=== PATIENT | female | born 1950 | race Caucasian/White ===

== ENCOUNTER → 2024-07-26 | Outpatient (CLI) | payer MEDICARE ==
--- NOTE | 2024-07-26 14:08 | HMCIMG ---
Exam Type: CERV SPINE 4-5 VWS Clinical Information: CERVICALGIA Comparison: None FINDINGS: C1 through the top of T1 are seen on the lateral view. The prevertebral soft tissues are normal. No fractures or dislocations are seen. There are spondylytic changes and there are degenerative changes of the facet joints. There is narrowing of the C5-6 and C6-7 discs consistent with degenerative disc disease. The other disc spaces are intact. There is straightening consistent with spasm. IMPRESSION: Degenerative changes as noted.
--- NOTE | 2024-07-26 14:08 | HMCIMG ---
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 There are severe spondylytic changes. Lordosis is preserved. The disc spaces are intact. The facet joints show severe degenerative changes with significant hypertrophy causing neural foramina narrowing at all levels bilaterally. Impression: Severe spondylitic changes and degenerative changes of the apophyseal joints as noted.
== END | disposition home or self-care (01) ==
LOC: RAH 12:49
PROVIDERS: ATTEND Internal Medicine
DX: M47.812 Spondylosis without myelopathy or radiculopathy, cervical region (principal); M47.816 Spondylosis without myelopathy or radiculopathy, lumbar region; M43.16 Spondylolisthesis, lumbar region; M48.02 Spinal stenosis, cervical region; M54.2 Cervicalgia; M53.86 Other specified dorsopathies, lumbar region
CPT/HCPCS: 72050; 72110

== ENCOUNTER → 2024-08-09 | Outpatient (CLI) | payer MEDICARE ==
--- NOTE | 2024-08-09 10:39 | HMCIMG ---
LUMBAR W FLEXION/EXTENSION REASON: Idiopathic progressive neuropathy;Spondylolisthesis, lumbar region COMPARISON: 07/26/2024 TECHNIQUE: 4 lumbar spine views were obtained including flexion and extension. FINDINGS: 2 standing views show 11 mm anterior subluxation of L4 on L5. Disc interspace heights are preserved. There are marked degenerative changes in the facets at L4-4-5 and L5-S1. The 11 mm anterior subluxation is preserved on flexion and extension views. Alignment remains otherwise unremarkable as well. IMPRESSION: 1. Marked lumbar degenerative changes in the facets at L4-5 and L5-S1. 2. 11 mm anterior subluxation of L4 on L5, this is stable between neutral, flexion and extension views.
[2024-08-10 07:14] LABS: RHEUMATOID ARTHRITIS FACTOR 10.4 IU/mL (<14.0)
[2024-08-11 15:14] LABS: ALBUMIN (PEP) 3.8 g/dL (2.9-4.4); TOTAL PROTEIN 6.5 g/dL (6.0-8.5)
== END | disposition home or self-care (01) ==
LOC: LAB 09:09
PROVIDERS: ATTEND Physical Medicine & Rehabilitation
DX: M47.817 Spondylosis without myelopathy or radiculopathy, lumbosacral region (principal); G60.3 Idiopathic progressive neuropathy; M43.16 Spondylolisthesis, lumbar region; E55.9 Vitamin D deficiency, unspecified; R20.2 Paresthesia of skin; G62.9 Polyneuropathy, unspecified
CPT/HCPCS: 36415; 72114; 82306; 82607; 82746; 84155; 84165; 85651; 86038; 86140; 86431